=== PATIENT | female | born 1980 | race Hispanic/Latino ===

== ENCOUNTER 2021-01-06 11:06 | Emergency (ER) | payer OTHER, SELFPAY ==
--- NOTE | 2021-01-06 11:29 | RAD ---
LEFT ELBOW 2 VIEWS: HISTORY: Elbow pain status post fall. FINDINGS: There are no signs of fracture or dislocation. No joint effusion. IMPRESSION: Negative left elbow. POS: [facility]
== END 2021-01-06 11:58 | disposition home or self-care (01) ==
LOC: ERS 11:06
DX: S50.02XA Contusion of left elbow, initial encounter (principal); Z79.899 Other long term (current) drug therapy; W00.0XXA Fall on same level due to ice and snow, initial encounter

== ENCOUNTER 2023-12-25 04:45 | Emergency (ER) | payer SELFPAY ==
[2023-12-25 05:28] LABS: #Eosinphils 0.3 thou/uL (0.0-0.7); #Monocytes 0.9 thou/uL (0.11-0.59); #Neutrophils 7.4 thou/uL (1.40-6.50); %Basophils 0.3 % (0.0-1.0); %Eosinophils 2.6 % (0.0-10.0); %Lymphocytes 32.9 % (21.0-51.0); %Monocytes 6.9 % (0.0-10.0); Hematocrit 25.1 % (36.0-47.0); Hemoglobin 8.3 g/dL (12.0-16.0); Mean Corpuscular HGB CONC 33.1 g/dL (32.0-36.0); Mean Corpuscular Hemoglobin 30.5 pg (27.0-31.0); Mean Corpuscular Volume 92.3 fl (78.0-98.0); Mean Platelet Volume 10.4 fL (7.4-10.4); Platelet Count 327 10x3/uL (130-400); RBC Distribution Width 13.1 % (11.5-14.5); Red Blood Cell (RBC) Count 2.72 mill/uL (4.20-5.40)
[2023-12-25 05:39] LABS: BHCG - Serum Negative (NEGATIVE); Pregs Control Background? CLEAR/WHITE (CLR/WHITE); Pregs Control Bar Appear? YES (CONTROL BAR)
[2023-12-25 05:53] LABS: ALT (SGPT) 26 U/L (8-55); AST (SGOT) 33 U/L (5-34); Albumin 3.5 g/dL (3.5-5.0); Alkaline Phosphatase 206 U/L (40-110); Anion Gap 11 mmol/L (10-20); BUN (Urea Nitrogen) 31 mg/dL (7.0-18.7); Bilirubin, Total 0.4 mg/dL (0.2-1.2); Calc. Creatinine Clearance 0 mL/min (70-130); Calcium 8.7 mg/dL (7.8-10.44); Carbon Dioxide 16 mmol/L (22-29); Chloride 108 mmol/L (98-107); Estimated GFR 52; Globulin 4.2 g/dL (2.4-3.5); Glucose 141 mg/dL (70-105); Potassium 3.6 mmol/L (3.5-5.1); Protein, Total 7.7 g/dL (6.0-8.3); Sodium 131 mmol/L (136-145)
[2023-12-25 05:56] LABS: Bacteria/HPF None Seen HPF (None Seen); Bilirubin Negative (Negative); Blood, Urine 3+ (Negative); CAUTI Indications for Culture Pelvic or flank pain; Clarity Turbid (Clear); Glucose, Urine (Dipstick) Normal (Negative); Ketone, Urine Negative (Negative); Leukocyte 25 Leu/uL (Negative); Nitrite Negative (Negative); Protein, Urine (Dipstick) 100 mg/dL (Neg-Trace); RBC/HPF Greater than 50 HPF (0-3); Specific Gravity, Urine 1.016 (1.002-1.036); Squamous Epithelial 0-3 HPF (0-3); Urine Culture Reflex No No; Urobilinogen Normal mg/dL (Less than 2)
[2023-12-25 06:39] LABS: Hematocrit 24.7 % (36.0-47.0); Hemoglobin 7.9 g/dL (12.0-16.0)
[2023-12-25] MEDS ORDERED: medroxyPROGESTERone Acetate 5 MG TAB PO SCH (07:15)
== END 2023-12-25 06:33 | disposition home or self-care (01) ==
LOC: ERS 04:45
DX: N93.9 Abnormal uterine and vaginal bleeding, unspecified (principal)
CPT/HCPCS: 36415; 80053; 81001; 84702; 84703; 85025; 99284

== ENCOUNTER 2024-01-03 12:10 | Outpatient (CLI) | payer OTHER | END 2024-01-03 12:11 | disposition home or self-care (01) | LOC: BICULT 12:10 | PROVIDERS: ATTEND Family Medicine | DX: N92.0 Excessive and frequent menstruation with regular cycle (principal); N83.8 Other noninflammatory disorders of ovary, fallopian tube and broad ligament | CPT/HCPCS: 76856 ==